=== PATIENT | male | born 1990 | race Caucasian/White ===

== ENCOUNTER 2018-08-23 09:37 | Emergency (ER) | payer BC ==
[2018-08-23 10:15] VITALS: BP 117/79; PULSE 76; RESP 16; TEMP 98.3
[2018-08-23] MEDS ORDERED: PROPARACAINE 0.5% OPHTH DROPS 15 ML BTL LEFT EYE STA (11:15)
[2018-08-23] MEDS ORDERED: DIPH,PERTUS(ACELL)TETVAC-LF 0.5 ML VIAL IM ONE (11:20)
--- NOTE | 2018-08-23 11:21 | ED ---
Eye Problem HPI - General Chief complaint: Eye Problems Stated complaint: metal in lt eye Time Seen by Provider: 08/23/18 10:55 Source: patient Mode of arrival: ambulatory Limitations: no limitations - History of Present Illness Initial comments: Patient is a 28-year-old male presents emergency Department with a foreign body in his left eye. Patient states that he was using an angle track grinder when a piece of metal debris went into his eye. Patient does not use contact lenses. Patient denies blurry vision, pain with extraocular movements, erythema or eye discharge. Patient states that he is unknown of his tetanus status. Patient reports the pain is a 3 and nonradiating. Patient reports only eye discomfort with eye movements. Patient attempted to remove the foreign body with a Q-tip with minimal improvement. Patient denies taking medication to alleviate his symptoms. Patient does not wear contact lenses. - Related Data Previous Rx's Medication Instructions Recorded Artificial Tears-Hypromellose 1 drops LEFT EYE TID #1 bottle 08/23/18 [Artificial Tear Drops] Ofloxacin 0.3% Ophth Soln [Ocuflox 1 drops LEFT EYE QID #1 bottle 08/23/18 Ophth Soln] Allergies Allergy/AdvReac Type Severity Reaction Status Date / Time No Known Allergies Allergy Verified 08/23/18 10:15 Review of Systems ROS Statement: Those systems with pertinent positive or pertinent negative responses have been documented in the HPI. ROS Other: All systems not noted in ROS Statement are negative. Past Medical History Past Medical History: No Reported History History of Any Multi-Drug Resistant Organisms: None Reported Past Surgical History: Tonsillectomy Past Psychological History: No Psychological Hx Reported Smoking Status: Never smoker Past Alcohol Use History: Occasional Past Drug Use History: None Reported General Exam Limitations: no limitations General appearance: alert, in no apparent distress Head exam: Present: atraumatic, normocephalic, normal inspection Eye exam: Present: PERRL, EOMI. Absent: normal appearance (Foreign body noted on the left eye along the lateral border of the iris.) Pupils: Present: normal accommodation ENT exam: Present: normal exam, mucous membranes moist Neck exam: Present: normal inspection, full ROM Respiratory exam: Present: normal lung sounds bilaterally Cardiovascular Exam: Present: regular rate, normal rhythm, normal heart sounds Extremities exam: Present: normal inspection Back exam: Present: normal inspection Neurological exam: Present: alert, oriented X3 Psychiatric exam: Present: normal affect, normal mood Skin exam: Present: warm, intact, normal color Course Vital Signs 08/23/18 10:13 Temperature 98.3 F Pulse Rate 76 Respiratory 16 Rate Blood Pressure 117/79 O2 Sat by Pulse 96 Oximetry Procedures - Procedures Initial comment: Foreign body from the left eye removed using [place] Narvon. Proparacaine drops used for anesthesia. 2 metal foreign bodies removed. Patient tolerated the procedure well. Medical Decision Making - Medical Decision Making Patient is a 28-year-old male presenting to emergency Department with foreign- body his left eye. Left eye was anesthetized using topical proparacaine. Foreign body was removed with Q-tip and [place] brush. Fluorescent stain was applied to the eye and is showing 2 corneal abrasions. Patient was discharged with ofoxacin drops, artificial tears and Tylenol 3 starter pack 4 pain control after local anesthetic wears off. Patient advised to follow with ophthalmology. Patient advised to return to emergency department if symptoms worsen. Case discussed with physician. Disposition Clinical Impression: Foreign body of eye, external, left, Corneal abrasion, left Disposition: HOME SELF-CARE Condition: Stable Instructions (If sedation given, give patient instructions): Eye Foreign Body (ED) Additional Instructions: Please take prescribed medication as directed. Please follow with ophthalmology . Please return to emergency department if symptoms worsen. Prescriptions: Artificial Tears-Hypromellose [Artificial Tear Drops] 1 drops LEFT EYE TID #1 bottle Ofloxacin 0.3% Ophth Soln [Ocuflox Ophth Soln] 1 drops LEFT EYE QID #1 bottle Is patient prescribed a controlled substance at d/c from ED?: No Referrals: Cm Galo DO [Primary Care Provider] - 1-2 days Time of Disposition: 13:12
[2018-08-23] MEDS ORDERED: ACET/COD 300 MG/30 MG STARTER PACK 6 TAB BTL PO STA (12:52)
== END 2018-08-23 13:30 | disposition home or self-care (01) ==
LOC: EC 09:37
DX: T15.02XA Foreign body in cornea, left eye, initial encounter (principal)
CPT/HCPCS: 65220; 90715; 96372; 99283